=== PATIENT | male | born 2000 | race African-American/Black ===

== ENCOUNTER 2022-02-24 15:54 | Emergency (ER) | payer OTHER, SELFPAY ==
--- NOTE | ~2022-02-24 | CT_ITS ---
EXAMINATION: CT abdomen pelvis w con DATE: 02/24/2022 17:02 INDICATION: Abdominal pain TECHNIQUE: Computed tomography (CT) of the abdomen and pelvis was performed with 100 mL Omnipaque-350 intravenous contrast. Automated exposure control and iterative reconstruction technique were employe d. The dose-length product was 213.02 mGy-cm. COMPARISON: None FINDINGS: Lung bases are clear. Visualized inferior heart is normal. There is nonspecific mild periportal edema in the lateral segment of the left hepatic lobe. The remainder of the liver appears normal. Portal v eins are patent. Gallbladder, spleen, pancreas, bilateral adrenal glands and kidneys are normal. Norm al appendix. No bowel obstruction. Bladder is normal. No free intraperitoneal gas or fluid. No pathol ogically enlarged abdominal or pelvic lymphadenopathy. Bones are unremarkable. IMPRESSION: 1. Nonspecific periportal edema in the lateral segment of the left hepatic lobe. Differential would i nclude acute hepatitis, cholangitis, acute pyelonephritis which appears otherwise normal radiographic evidence, congestive failure, secondary cardiac congestion, aggressive fluid resuscitation or blunt hepatic trauma. Correlate with liver function tests. Reviewed, dictated and finalized at location A. ANET DEVELOPER IMPRESSION: 1. Nonspecific periportal edema in the lateral segment of the left hepatic lobe . Differential would include acute hepatitis, cholangitis, acute pyelonephritis which appears otherwise normal radiographic evidence, congestive failure, seco ndary cardiac congestion, aggressive fluid resuscitation or blunt hepatic traum a. Correlate with liver function tests.
[2022-02-24 16:01] VITALS: BP 132/69; PULSE 94; RESP 20; TEMP 36.6; O2SAT 100
--- NOTE | 2022-02-24 16:15 | ED.NAVMDI ---
HPI - Nausea/Vomiting/Diarrhea General Chief complaint: Nausea/Vomiting/Diarrhea Stated complaint: vomiting Time Seen by Provider: 02/24/22 16:11 History of Present Illness HPI Narrative: Patient is 21 years old -[place] male came to the emergency room by private car from home complaining of severe nausea, vomiting and abdominal pain after waking up from sleep at 11 AM this morning. Patient had a lot of alcohol last night, went to bed around 3 AM. Patient reports he never drank this amount of alcohol before. He denies any fever, chills, diarrhea. Patient is healthy otherwise, does not take medications, uses marijuana occasionally and alcohol occasionally Related Data Allergies Allergy/AdvReac Type Severity Reaction Status Date / Time No Known Allergies Allergy Verified 02/24/22 16:03 Review of Systems Review of Systems: All systems reviewed & are unremarkable except as noted in HPI and below Exam Narrative: General appearance: Well-developed, well-nourished Skin: Normal color Head: Normocephalic, nontraumatic Eyes: Clear conjunctiva ENT: Oropharynx normal, ears normal, nose normal Neck: Supple, nontender Chest and respiratory: Airway patent, no respiratory distress, no accessory muscle use Heart: Regular rate/rhythm Abdomen: Soft, diffuse tenderness, mainly upper abdomen, epigastric area, no rebound or guarding, no organomegaly, quiet bowel sounds Vascular: Normal peripheral pulses, normal capillary refill. 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 Dominguez Patient can be discharged and to follow-up as outpatient Date: 02/24/22 Time: 18:37 Vital Signs Vital signs: Vital Signs Temperature 36.6 C 02/24/22 16:01 Pulse Rate 94 02/24/22 16:01 Respiratory Rate 20 02/24/22 16:01 Blood Pressure 132/69 02/24/22 16:01 Pulse Oximetry 100 02/24/22 16:01 Oxygen Delivery Room Air 02/24/22 16:01 Temperature 36.6 C 02/24/22 16:01 Pulse Rate 94 02/24/22 16:01 Respiratory Rate 20 02/24/22 16:01 Blood Pressure 132/69 02/24/22 16:01 Pulse Oximetry 100 02/24/22 16:01 Oxygen Delivery Room Air 02/24/22 16:01 MDM - Nausea/Vomiting/Diarrhea MDM Narrative Medical decision making narrative: 21 years old -[place] male had quite a bit of alcohol last night, went to bed at 3 AM, woke up at 11 AM with nausea, vomiting and abdominal pain, patient reports that amount of alcohol he had last night was too much compared to what he drinks usually. Physical examination showed diffuse abdominal pain mainly at the epigastric area, alcoholic gastritis, esophagitis, alcoholic hepatitis, pancreatitis are my concern. Labs, CT abdomen and pelvis with IV contrast, ordered Patient received 2 L of normal saline, morphine 4 mg, Zofran 4 mg, Work-up did not show any significant finding to explain patient condition, CT abdomen and pelvis with IV contrast showed nonspecific periportal edema in the lateral segment of the left hepatic lobe. I did discuss the above findings with Dr. Dominguez who agreed ,it is non nonspecific and patient can go home and to follow-up with him as outpatient. Patient agreed with the plan, was able to keep fluids and crackers down prior to discharge. My plan to discharge him on omeprazole for possible alcoholic gastritis and to not to drink for at least 2 weeks Imaging Data Radiologist's impression: Impressions Abdomen/Pelvis CT 02/24/22 17:17 IMPRESSION: 1. Nonspecific periportal edema in the lateral segment of the left hepatic lobe. Differential woul
[2022-02-24 16:27] LABS: Basophils Absolute Auto 0.1 K/mm3 (0.0-0.1); Basophils Percent Auto 0.3 % (0.2-1.2); Hematocrit 48.3 % (42.0-52.0); Immature Granulocyte Absolute 0.13 K/mm3 (0.00-0.031); Immature Granulocyte Percent A 0.7 % (0-0.5); Lymphocytes Percent Auto 5.1 % (18.3-44.2); Mean Corpuscular HGB Conc 35.2 g/dl (32-36); Mean Corpuscular Hemoglobin 31.5 pg (26-34); Mean Corpuscular Volume 89.4 fl (80-100); Mean Platelet Volume 10.3 fl (7.4-10.4); Monocytes Absolute Auto 0.4 K/mm3 (0.1-0.6); Monocytes Percent Auto 2.4 % (2.6-8.5); Neutrophils Absolute Auto 16.2 K/mm3 (1.3-6.7); Neutrophils Percent Auto 91.5 % (45.5-73.1); Platelet Count Result 227 k/mm3 (150-375); White Blood Count 17.7 K/mm3 (4.5-10.0)
[2022-02-24] MEDS: SODIUM CHLORIDE 0.9% IV 1,000 ML 999 ML IV CONT (16:33)
[2022-02-24 16:40] LABS: Albumin Level 5.5 g/dL (3.5-5.1); Alkaline Phosphatase 63 U/L (38-126); Anion Gap 20 mmol/L (8-16); Aspartate Amino Transferase 159 U/L (17-59); Bilirubin,Total 1.1 mg/dL (0.2-1.3); Blood Urea Nitrogen 15 mg/dL (9-20); Calcium 9.5 mg/dL (8.4-10.2); Carbon Dioxide 17 mmol/L (22-30); Chloride 102 mmol/L (98-107); Estimated CRCL calculation 76 ml/min; Estimated Glomerular Filt Rate > 60; Glucose 86 mg/dL (65-110); Lipase 55 U/L (23-300); Potassium 4.1 mmol/L (3.4-5.0); Sodium 139 mmol/L (137-145)
[2022-02-24 16:49] LABS: Alanine Aminotransferase 93 U/L (6-50)
[2022-02-24 17:42] VITALS: BP 138/70; PULSE 70
[2022-02-24 17:45] VITALS: BP 128/76; PULSE 66
[2022-02-24 17:47] VITALS: BP 125/77; PULSE 88
[2022-02-24] MEDS: ONDANSETRON INJ 4 MG/2 ML VIAL IV PUSH (17:52)
[2022-02-24 17:55] LABS: Appearance Urine Clear (Clear); Bilirubin Urine Negative (Negative); Blood Urine Trace-intact (Negative); Color Urine Yellow (Yellow); Glucose Urine UA Negative (Negative); Ketones Urine 2+ mg/dL (Negative); Leukocyte Esterase Ur Negative LEU/UL (Negative); Nitrate Urine Negative (Negative); Protein Urine Negative (Negative); Specific Grav Ur 1.015 (1.001-1.035); Urobilinogen Urine 0.2 mg/dL (<2.0); pH Urine 5.5 (5.0-9.0)
[2022-02-24 17:56] VITALS: BP 125/77; PULSE 67; RESP 18; O2SAT 100
[2022-02-24 18:00] LABS: Mucus Urine Rare /lpf; RBC Urine 0-2 /hpf (0-2); WBC Urine 0-3 /hpf
[2022-02-24 18:26] LABS: Add Urine Microscopic? YES
[2022-02-24 18:33] VITALS: BP 128/59; PULSE 63; RESP 18; O2SAT 98
== END 2022-02-24 18:34 | disposition home or self-care (01) ==
PROVIDERS: Emergency Medicine; Emergency Provider Emergency Medicine
DX: F10.129 Alcohol abuse with intoxication, unspecified (principal); K76.89 Other specified diseases of liver; Y90.9 Presence of alcohol in blood, level not specified
CPT/HCPCS: 36415; 74177; 80053; 81001; 83690; 85025; 96361; 96374; 99284; J2405; J7030; Q9967